=== PATIENT | female | born 1990 | race Caucasian/White ===

== ENCOUNTER → 2017-06-25 | Outpatient (CLI) | payer MEDICAID | LOC: FIMAGING 12:45 | PROVIDERS: ATTEND Registered Nurse | DX: R30.0 Dysuria (principal); R10.2 Pelvic and perineal pain ==

== ENCOUNTER → 2018-06-15 | Outpatient (CLI) | payer MEDICAID | LOC: FIMAGING 13:35 | PROVIDERS: ATTEND Family Medicine | DX: K59.00 Constipation, unspecified (principal); R39.11 Hesitancy of micturition; R39.15 Urgency of urination ==